=== PATIENT | male | born 1980 | race Caucasian/White ===

== ENCOUNTER → 2021-01-12 | Emergency (ER) | payer SELFPAY ==
[~2021-01-12] VITALS: Ht 165.1 cm; Wt 85.0 kg
[~2021-01-12] MED LIST: ASPIRIN 81MG TABLET PO ONE
[2021-01-12 13:31] LABS: CHLORIDE 105 mEq/L (98-107)
[2021-01-12 13:55] LABS: BASOPHILS % 1.2 % (0.0-2.0); EOSINOPHILS % 0.5 % (0.0-5.0); HEMOGLOBIN. 15.2 g/dL (14.0-18.0); LYMPHOCYTES % 28.1 % (20.0-50.0); MEAN CORPUSCULAR VOLUME 87.6 fL (80.0-94.0); MEAN PLATELET VOLUME 8.1 fl (7.4-10.4); MONOCYTES % 4.8 % (2.0-8.0); NEUTROPHILS % 65.4 % (40.0-76.0); PLATELET 278 x1000/uL (130-400); RED BLOOD CELL COUNT 4.91 mill/uL (4.7-6.1)
[2021-01-12 16:04] VITALS: BP 120/78
== END | disposition home or self-care (01) ==
LOC: ER 12:35
DX: R07.2 Precordial pain (principal); R20.0 Anesthesia of skin
CPT/HCPCS: 36415; 71045; 80053; 83880; 84484; 85025; 93005; 99285; Z7610